=== PATIENT | female | born 1970 | race Caucasian/White ===

== ENCOUNTER 2018-09-30 12:07 | Outpatient (CLI) | payer OTHER, SELFPAY ==
--- NOTE | 2018-09-30 12:23 | DI.RAD_ITS ---
SYMPTOM/DIAGNOSIS: PAIN BILATERAL HIPS AND PELVIS: No priors. The bones are intact and normally mineralized. The hip joints appear well maintained as are the sacroiliac joints and symphysis pubis. The soft tissues are unremarkable save for vascular calcifications. IMPRESSION: Negative bilateral hips.
== END 2018-09-30 12:27 ==
PROVIDERS: PCP Family Medicine; Visit Provider Student in an Organized Health Care Education/Training Program
DX: M25.551 Pain in right hip (principal); M25.552 Pain in left hip
CPT/HCPCS: 73521

== ENCOUNTER 2018-12-19 20:26 | Emergency (ER) | payer OTHER, SELFPAY ==
[2018-12-19 20:31] VITALS: BP 168/73; PULSE 130; RESP 22; TEMP 36.7; O2SAT 100
[2018-12-19 20:34] VITALS: RESP 22
--- NOTE | 2018-12-19 20:52 | ED.GENADUL_ITS ---
Discharge Plan Disposition Patient Disposition: HOME Condition: Stable Discharge Details Chief Complaint: GenMedical Clinical Impression: Myalgia, Rash, Tick bite Primary Care Provider: Cherri Blackwell ED Provider: Ashish Miles Home Meds and New Rx's Prescriptions: New mupirocin 2 % ointment 1 applic TP TID Qty: 22 RF: 0 Continued levothyroxine 125 mcg capsule 125 mcg PO DAILY RF: 0 Levemir Flexpen 100 UNIT/1 ML insulin pen 1 units SQ BID RF: 0 Novolog U-100 Insulin aspart 100 UNITS/ML solution 3 - 8 units IJ PRN PRNRF: 0 Discharge Instructions Instructions: Tick Bite (ED) Additional Instructions: Your PCR testing should be back in a few days and you will be called if it is positive if you feel you are becoming more ill, the knee becomes red and swollen or the redness is spreading further from the wound return to the emergency department for reevaluation Medical Decision Making 48 yo female with hx of T1DM comes in with feeling unwell. She pulled a tick off her knee this past Sunday and had a small lesion that has now ulcerated and is about 1cm in size without surrounding erythema and no swelling of the knee and has full rom so doubt septic joint. She has had intermittent fevers, weakness, myalgias as well has headaches. She has no meningismus on exam. She has clear lung sounds on exam and is noted to be tachycardic. She has been taking doxycycline 100mg twice daily but still is feeling worse. This could be tick born illness such as lyme, babesiosis or tularemia, will send tick panel and tularemia testing as well. she declined to have influenza testing. I did recommend giving IVF given her tachycardia but she also declined this and just wants to do blood work, will honor her wishes and perform lab testing and monitor pt's labs unremarkable and she remains stable. Discussed starting tx with cipro for tularemia vs possible babesiosis but she would like to wait for pcr's. In the mean time will start topical mupirocin for the rash and return precautions given Differential Diagnosis Differential Diagnosis: tularemia, tick born illness, babesiosis Lab Data Lab results reviewed: Yes I reviewed the patient's lab results. HPI General Mode of arrival: ambulatory . Date/Time Provider Initiated Documentation: 12/19/18 20:37 . Limitations to Documentation: no limitations . Information obtained by: patient . History of Present Illness 48 year old F presents to the emergency department with the chief complaint of rash, described as moderate, and is localized to the lower extremity. Patient reports no radiation. Patient started experiencing this day(s) (4) and it has been constant. No relieving factors improve symptom(s), No exacerbating factors reported . Patient did receive the following treatments prior to arrival, none Related Data Home Medications Medication Instructions Recorded Confirmed Levemir Flexpen 1 units SQ BID 11/04/12 12/19/18 Novolog U-100 Insulin aspart 3 - 8 units IJ PRN PRN 11/11/12 12/19/18 levothyroxine 125 mcg capsule 125 mcg PO DAILY 09/30/18 12/19/18 mupirocin 1 applic TP TID #22 gm 12/19/18 Previous Rx's Medication Instructions Recorded mupirocin 1 applic TP TID #22 gm 12/19/18 Allergies Allergy/AdvReac Type Severity Reaction Status Date / Time Sulfa (Sulfonamide Allergy Verified 12/19/18 20:37 Antibiotics) General Stated Complaint: GenMedical HARRISON: 3 Review of Systems Review of Systems ROS Unobtainable: All systems reviewed & are unremarkable except as noted in HPI and below Constitutional Constitutional: Reports chills and Reports fever(s) Respiratory Respiratory: Reports cough Gastrointestinal Gastrointestinal: Denies vomiting Integumentary/Breasts Skin/Breast: Reports rash [facility] Medical History (Updated 10/01/18 @ 06:01 by Marquise Lariso MD) Type 1 diabetes mellitus (Acute) Social History Smoking/Tobacco Use Status: Never Drug use: Never Exam Const General: no acute distress Orientation: alert HENIL Head: normal to inspection General nose exam: external nose normal Eyes General: appearance normal, both eyes and all related structures Neck Neck: normal visual inspection Resp Effort & Inspection: normal respiratory effort and able to speak in complete sentences Cardio Rate: regular rate and tachycardic Skin General skin exam: other (1cm ulcerated lesion on lateral knee) Neuro General: alert and oriented x3 Extrem General: no joint enlargement Psych Mental Status: mental status grossly normal Course Vital Signs Vital signs: Vital Signs Temperature 36.7 C 12/19/18 20:31 Pulse 130 H 12/19/18 20:31 Respiratory Rate 22 12/19/18 20:31 Blood Pressure 168/73 H 12/19/18 20:31 Pulse Oximetry 100 12/19/18 20:31 Temperature 36.7 C 12/19/18 20:31 Temperature Source Temporal Artery Scan 12/19/18 20:31 Pulse 130 H 12/19/18 20:31 Respiratory Rate 22 12/19/18 20:34 Respiratory Effort Non-Labored 12/19/18 20:34 Respiratory Depth Normal 12/19/18 20:34 Respiratory Pattern Normal 12/19/18 20:34 Blood Pressure 168/73 H 12/19/18 20:31 Blood Pressure Position Sitting 12/19/18 20:31 Pulse Oximetry 100 12/19/18 20:31 Oxygen Delivery Method Room Air 12/19/18 20:31 Oxygen Flow Rate 0 12/19/18 20:31 Pain Level 0 12/19/18 20:31 Comment 12/19/18 20:31
[2018-12-19 21:14] LABS: BE (Venous) 2.4 mmol/L (-3-3); HCO3 (Venous) 27 mmol/L (22-28); O2 Sat (Venous) 50 % (70-80); TCO2 (Venous) 25 mmol/L (22-29); pCO2 (Venous) 43 mm/Hg (34-47); pH (Venous) 7.41 (7.32-7.43); pO2 (Venous) 28 mm/Hg (28-44)
[2018-12-19 21:15] LABS: Abs Immature Grans 0.01 k/cumm (0.0-0.09); Absolute Basophil Count 0.05 k/cumm (0.0-0.2); Absolute Eosinophil Count 0.02 k/cumm (0.0-0.7); Absolute Lymphocyte Count 2.34 k/cumm (1.2-3.4); Absolute Monocyte Count 0.48 k/cumm (0.11-0.7); Absolute Neutrophil Count 4.99 k/cumm (1.2-6.7); Basophils % 0.6; Eosinophils % 0.3; HGB 12.8 g/dL (12.0-15.5); Immature Grans % 0.1; Lactate 1.1 mmol/L (0.6-1.4); Lymphocytes % 29.7; Mean Corp. HGB Concentration 32.8 g/dL (32.0-36.0); Mean Corpuscular Hemoglobin 28.4 pg (27.0-33.0); Mean Corpuscular Volume 86.7 fL (80-95); Mean Platelet Volume 10.4 fL (8.0-11.0); Monocytes % 6.1; Neutrophils % 63.2; Platelet Count 329 x1000/uL (130-400); RBC Distribution Width 13.4 % (11.7-14.6); White Blood Cell Count 7.89 k/cumm (4.4-10.8)
[2018-12-19 21:31] LABS: Creatine Kinase 67 U/L (26-192)
[2018-12-19 21:34] LABS: PTT Activated 23.2 sec (21.0-31.4); Prothrombin Time 10.5 sec (9.3-11.0)
[2018-12-19 21:40] LABS: ALT 14 U/L (14-59); AST 15 U/L (15-37); Albumin 3.8 g/dL (3.4-5.0); Alkaline Phosphatase 58 U/L (46-116); BUN 7 mg/dL (7-18); Bilirubin, Direct 0.13 mg/dL (0.00-0.20); Bilirubin, Total 0.6 mg/dL (0.2-1.0); CREATININE 0.87 mg/dL (0.55-1.02); Calcium 8.9 mg/dL (8.5-10.1); Chloride 104 mmol/L (98-107); Glucose 159 mg/dL (70-100); Magnesium 1.9 mg/dL (1.8-2.4); Potassium 3.3 mmol/L (3.5-5.1); Sodium 140 mmol/L (136-145); Total Protein 7.4 g/dL (6.4-8.2)
[2018-12-19 22:00] VITALS: BP 126/82; PULSE 94; RESP 18; TEMP 38; O2SAT 96
[2018-12-22 23:22] LABS: Anaplasma phagocytophilum Negative (Negative); B. miyamotoi PCR Negative (Negative); Babesia divergens/MO-1 Negative (Negative); Babesia duncani Negative (Negative); Babesia microti Negative (Negative); Ehrlichia chaffeensis Negative (Negative); Ehrlichia ewingii/canis Negative (Negative); Ehrlichia muris eauclairensis Negative (Negative)
[2018-12-23 11:59] LABS: Lyme Ab w Rflx to Lyme Confirm Negative
== END 2018-12-19 22:09 | disposition home or self-care (01) ==
PROVIDERS: Emergency Provider Emergency Medicine; PCP Family Medicine
DX: M79.18 Myalgia, other site (principal); R21 Rash and other nonspecific skin eruption; R00.0 Tachycardia, unspecified; S80.262A Insect bite (nonvenomous), left knee, initial encounter; W57.XXXA Bitten or stung by nonvenomous insect and other nonvenomous arthropods, initial encounter; E10.9 Type 1 diabetes mellitus without complications
CPT/HCPCS: 36415; 80053; 80076; 82550; 82805; 87798; 99283; 83605; 83735; 85025; 85610; 85730; 86000; 86618; 86668

== ENCOUNTER 2018-12-27 12:05 | Outpatient (CLI) | payer OTHER, SELFPAY ==
[2018-12-27 15:48] LABS: COMMENT (LAB VIEW ONLY) 292.45 mg/dL; Microalb ug/mg Crea 3.8 ug/mg Cr
== END 2018-12-27 12:25 ==
PROVIDERS: PCP Family Medicine; Visit Provider Family Medicine
DX: E11.9 Type 2 diabetes mellitus without complications (principal)
CPT/HCPCS: 82043; 82570

== ENCOUNTER 2019-08-13 08:08 | Outpatient (CLI) | payer SELFPAY ==
[2019-08-14 18:53] LABS: COVID-19 RT-PCR UVMMC Result Negative (Negative)
== END 2019-08-13 08:28 ==
PROVIDERS: PCP Family Medicine; Visit Provider Family Medicine
DX: Z11.59 Encounter for screening for other viral diseases (principal)
CPT/HCPCS: U0003

== ENCOUNTER 2019-12-26 13:01 | Outpatient (REF) | payer BC, SELFPAY ==
[2019-12-26 19:21] LABS: HCT 44.5 % (36.0-46.0); HGB 14.2 g/dL (11.2-15.7); MCHC 31.9 % (32.0-36.0); MCV 87.8 fL (80-95); MPV 11.3 fL (8.0-11.0); Platelet Count 316 10^3/uL (130-400); RBC 5.07 10^6/uL (3.93-5.22); RDW 12.4 % (11.7-14.6); RDW-SD 39.6 fL; WBC 8.16 10^3/uL (4.4-10.8)
[2019-12-26 19:35] LABS: Hemoglobin A1C 7.4 % (<5.7)
[2019-12-26 19:42] LABS: Albumin 4.1 g/dL (3.4-5.0); Anion Gap 7.8 mmol/L (3-11); BUN 12 mg/dL (7-18); CO2 28.2 mmol/L (21.0-32.0); CREATININE 0.92 mg/dL (0.55-1.02); Calcium 9.4 mg/dL (8.5-10.1); Chloride 103 mmol/L (98-107); Glucose 263 mg/dL (74-106); HDL Cholesterol 63 mg/dL (40-60); Potassium 4.3 mmol/L (3.5-5.1); Sodium 139 mmol/L (136-145)
[2019-12-26 20:12] LABS: COMMENT (LAB VIEW ONLY) 310.88 mg/dL; Microalb ug/mg Crea 7.8 ug/mg Cr
[2019-12-26 20:24] LABS: ALT 14 U/L (14-59); AST 14 U/L (15-37); Alkaline Phosphatase 72 U/L (46-116); Bilirubin, Total 0.5 mg/dL (0.2-1.0); Calculated LDL 121 mg/dL (<100); Cholesterol 191 mg/dL (<200); Ferritin 19 ng/mL (8-252); Folate 8.3 ng/mL (8.6-20.0); TSH (W/Ref FT4) 3.71 uIU/mL (0.36-3.74); Total Protein 7.7 g/dL (6.4-8.2); Triglyceride 39 mg/dL (<150); Vitamin B12 290 pg/mL (193-986)
[2019-12-26 20:51] LABS: FREE T4 1.05 ng/dL (0.76-1.46)
[2019-12-28 17:35] LABS: T3,Free 2.9 pg/mL (2.8-5.3)
[2019-12-28 17:49] LABS: T3, Total 113 ng/dL (97-169)
[2020-01-06 14:26] LABS: Aspergillus Fumigatus IgE <0.35 kU/L
== END 2019-12-26 13:21 ==
LOC: NCHCN 13:01
PROVIDERS: PCP Family Medicine; Visit Provider Family Medicine
DX: E10.9 Type 1 diabetes mellitus without complications (principal); E03.9 Hypothyroidism, unspecified; R25.1 Tremor, unspecified; R05 Cough
CPT/HCPCS: 80053; 80061; 85027; 82043; 82570; 82607; 82728; 82746; 83036; 84439; 84443; 84480; 84481; 86003

== ENCOUNTER 2020-10-29 10:52 | Outpatient (REF) | payer BC, SELFPAY | END 2020-10-29 10:53 | disposition home or self-care (01) | LOC: LBN 10:52 | PROVIDERS: PCP Family Medicine; Visit Provider Family Medicine | DX: R05 Cough (principal) | CPT/HCPCS: 87070; 87205 ==

== ENCOUNTER 2021-05-27 17:18 | Outpatient (REF) | payer BC, SELFPAY ==
[2021-05-27 20:09] LABS: Abs Immature Grans 0.01 10^3/uL (0.0-0.06); Absolute Basophil Count 0.09 10^3/uL (0.0-0.2); Absolute Eosinophil Count 0.03 10^3/uL (0.0-0.7); Absolute Lymphocyte Count 1.61 10^3/uL (1.2-3.4); Absolute Monocyte Count 0.33 10^3/uL (0.1-0.8); Absolute Neutrophil Count 4.78 10^3/uL (1.2-6.7); Basophils % 1.3; Eosinophils % 0.4; HCT 36.2 % (36.0-46.0); Immature Grans % 0.1; Lymphocytes % 23.5; MCH 25.5 pg (27.0-33.0); MCHC 30.4 % (32.0-36.0); MPV 11.9 fL (8.0-11.0); Monocytes % 4.8; Neutrophils % 69.9; Nucleated RBC 0 %; Platelet Count 394 10^3/uL (130-400); RBC 4.31 10^6/uL (3.93-5.22); RDW 14.4 % (11.7-14.6); RDW-SD 44.4 fL; WBC 6.85 10^3/uL (4.4-10.8)
[2021-05-27 20:30] LABS: Hemoglobin A1C 8.5 % (<5.7)
[2021-05-27 20:57] LABS: ALT 17 U/L (14-59); AST 18 U/L (15-37); Alkaline Phosphatase 70 U/L (46-116); Anion Gap 10.5 mmol/L (3-11); BUN 13 mg/dL (7-18); Bilirubin, Total 0.3 mg/dL (0.2-1.0); CO2 26.5 mmol/L (21.0-32.0); CREATININE 0.8 mg/dL (0.55-1.02); Calcium 9.2 mg/dL (8.5-10.1); Chloride 105 mmol/L (98-107); Ferritin 5 ng/mL (8-252); Folate 6.8 ng/mL (8.6-20.0); Glucose 122 mg/dL (74-106); Potassium 4.1 mmol/L (3.5-5.1); Sodium 142 mmol/L (136-145); TSH (W/Ref FT4) 9.79 uIU/mL (0.36-3.74); Total Protein 7.4 g/dL (6.4-8.2); Vitamin B12 324 pg/mL (193-986)
[2021-05-27 21:33] LABS: FREE T4 0.98 ng/dL (0.76-1.46)
[2021-05-28 22:29] LABS: T3,Free 2.8 pg/mL (2.8-5.3)
== END 2021-05-27 17:19 | disposition home or self-care (01) ==
LOC: NCHCN 17:18
PROVIDERS: PCP Family Medicine; Visit Provider Family Medicine
DX: E10.9 Type 1 diabetes mellitus without complications (principal); E03.9 Hypothyroidism, unspecified; D53.1 Other megaloblastic anemias, not elsewhere classified; R05.8 Other specified cough
CPT/HCPCS: 80053; 82607; 82728; 82746; 83036; 84439; 84443; 84481; 85025; 86606

== ENCOUNTER → 2021-08-15 02:27 | Outpatient (CLI) | payer BC, SELFPAY | PROVIDERS: PCP Family Medicine; Visit Provider Family Medicine ==

== ENCOUNTER 2023-08-17 14:07 | Outpatient (REF) | payer SELFPAY ==
[2023-10-04 09:39] LABS: Fungal Culture & Smear See Comments
== END 2023-08-17 14:08 | disposition home or self-care (01) ==
LOC: NCHCN 14:07
PROVIDERS: PCP Family Medicine; Visit Provider Family Medicine
DX: R05.3 Chronic cough (principal); B37.9 Candidiasis, unspecified
CPT/HCPCS: 87102; 87107; 87206